=== PATIENT | female | born 1975 | race Caucasian/White ===

== ENCOUNTER 2025-06-17 16:21 | Emergency (ER) | payer MEDICAID ==
[~2025-06-17] VITALS: Ht 152.4 cm; Wt 81.0 kg
[2025-06-17 16:33] VITALS: O2SAT 98
[2025-06-17] MEDS: KETOROLAC 15MG/ML VIAL IV ONE (17:30)
[2025-06-17] MEDS: METOCLOPRAMIDE HCL 10MG/2ML VIAL IV ONE (18:36)
[2025-06-17] MEDS: DEXAMETHASONE 10 MG/ML VIAL IV ONE (18:36)
[2025-06-17] MEDS: SODIUM CHLORIDE 0.9% 1,000 ML IV ONE (18:45)
[2025-06-17] MEDS ORDERED: LIDO700A30 TP (19:18)
[2025-06-17 19:46] VITALS: BP 127/81; PULSE 78; RESP 18; TEMP 37.1; O2SAT 98
== END 2025-06-17 19:56 | disposition home or self-care (01) ==
LOC: ER 16:21
DX: R51.9 Headache, unspecified (principal); E78.00 Pure hypercholesterolemia, unspecified; I10 Essential (primary) hypertension
CPT/HCPCS: 99285; 96374; 70450; 96375; 96361; J1885; J1100; J2765; J7030